=== PATIENT | male | born 1980 | race Caucasian/White ===

== ENCOUNTER 2021-03-15 13:15 | Outpatient (RCR) | payer OTHER, SELFPAY ==
--- NOTE | 2021-01-25 09:52 | PTOPEVAL ---
Thank you for referring Ming Lovelace to [facility].? The patient is scheduled to be seen for therapy? 3 x/week for 2 weeks, then 1x/wk for re-evaluation. 8 visits approved by insurance. Please review, sign, date and return this plan of care PARKER. I agree with and certify that the following plan of care is medically necessary. Referring Physician Date Referring Provider: Dr. 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 He was Family carrying logs when he slipped at fell hitting his back and head on the logs and ground. He was Dx with lumbar fracture. States his lumbar region has shifted forward on his sacrum. Per pt he has spondeylolisthesis He received 2 injections of his back with improved inflammation of the back region. He reports c/o pain from right low back and right hip and leg, into right leg, sacrum, groin region. He has increased pain and pinching with sitting. He he has difficulty with sleeping due to pain. He tries to stretch to improve the pain. He is limited with walking due to pain. He did use a cane, but stopped per MD recommendations. He is taking pain medication and muscle relaxer for the pain. Diagnostic Tests X-Rays For This Problem Yes Pain Assessment Self Report Pain Assessment Right Lower Back Reported Pain Level 6 Pain Description Numbness,Radiating,Sharp, Stabbing,Tightness Pain Radiation Right Leg Pain Frequency Chronic,Continuous Lowest Pain Intensity 3 Greatest Pain Intensity 10 Pain Aggravating Factors ADL's,Bending,Lifting, Prolonged Position,
--- NOTE | 2021-01-31 09:23 | PCPTNOTE ---
Patient called and states he will not be able to make it in because he is hurting too bad.
--- NOTE | 2021-02-08 08:17 | PCPTNOTE ---
Patient called & cancelled scheduled appointment this date due to pain. This is his 2nd cancelled visit.
--- NOTE | 2021-02-24 16:13 | PTOPEVAL ---
Thank you for referring Ming Lovelace to [facility].? The patient is scheduled to be seen for therapy? 2 x/week for 2-3 weeks. Please review, sign, date and return this plan of care PARKER. I agree with and certify that the following plan of care is medically necessary. 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 He was carrying logs when he slipped at fell hitting his back and head on the logs and ground. He was Dx with lumbar fracture. Subjective Information States his lumbar region has Query Text:As Reported By Patient/ shifted forward on his sacrum. Family Per pt he has spondeylolisthesis He continues to walk his dog 3x/day and walk his daughter to the bus stop. He has increased pinching after walking. He has increased symptoms with the walking. He c/o dull/sharp pain in the saddle region. Reports slight change in bed mobility with therapy. The stretching exercise are helping the tightness of his muscles and joints. He will have decreased radiating pain into his legs. He has increased pain sleeping with increased pain and symptoms. C/o pinching pain in the right groin/ buttock pain with hip flexion motion. He was able to carry 8# gallon with fatigue and pain. He fell backwards in the tub hitting his back in the corner on 02/18/21. Pain Assessment Self Report Pain Assessment Right Neck Reported Pain Level 5 Pain Description Dull,Numbness,Radiating,Spasms
--- NOTE | 2021-04-06 09:17 | PCPTNOTE ---
Admitting Provider: Attending Provider: Jasbir Díaz MD Patient:Ming Lovelace Date of :1980 Discharge Note Patient has not returned for any further treatments since 03/15/2021, therefore he will be discharged at this time. Patient?s initial visit was on 01/25/2021 08:30 and he had a total of 9 visits. No additional therapy visits have been authorized by his insurance company. The goals have been partially met at this time. Thank you for referring this patient to [facility]. Please review, sign, date and return this discharge summary PARKER. I have been updated about the patient's current status and I agree with discharge from the above service at this time. Referring Physician Date
== END 2021-04-18 13:48 | disposition home or self-care (01) ==
LOC: ANHPT 13:15
DX: M54.2 Cervicalgia (principal); M54.5 Low back pain
CPT/HCPCS: 97110; 97162; 97530